=== PATIENT | female | born 1950 | race Caucasian/White ===

== ENCOUNTER 2016-05-21 21:34 | Emergency (ER) | payer MEDICARE ==
[2016-05-21] MEDS ORDERED: Ondansetron INJ* 2 MG/ML VIAL IV ONE (22:12)
[2016-05-21] MEDS ORDERED: Labetalol IV* 5 MG/ML 20 ML VIAL IV PUSH ONE (22:12)
[2016-05-21] MEDS ORDERED: Metoclopramide IV* 5 MG/ML 2 ML VIAL IV SLOW PU ONE (22:15)
[2016-05-21 22:35] LABS: Hematocrit 43 % (35-47); Hemoglobin 14.3 g/dl (12.0-16.0); Mean Corpuscular HGB Conc 33 g/dl (31-36); Mean Corpuscular Hemoglobin 30 pg (27-31); Mean Corpuscular Volume 89 fL (80-97); Mean Platelet Volume 8 um3 (7.4-10.4); Red Blood Count 4.81 10^6/ul (4.0-5.4); Red Cell Distribution Width 13 % (10.5-15); White Blood Count 8.5 10^3/ul (3.5-10.8)
[2016-05-21 22:37] LABS: Add Diff/Slide Review? Slide Review Added; Comments Flag Yes
[2016-05-21 22:44] LABS: Urine Bilirubin Negative (Negative); Urine Glucose Negative (Negative); Urine Nitrite Negative (Negative)
[2016-05-21 22:50] LABS: Albumin 4.3 g/dL (3.2-5.2); BUN/Creatinine Ratio 17.1 (8-20); Calcium 9.7 mg/dL (8.6-10.3); EGFR African American 98.5 (>60); EGFR Non-African American 76.6 (>60); Potassium 3.8 mmol/L (3.5-5.0); Total Bilirubin 0.4 mg/dL (0.2-1.0); Total Protein 7.3 g/dL (6.4-8.9)
[2016-05-21] MEDS ORDERED: Iohexol 350* (CONTRAST) 500 ML MDV IV ONE (23:02)
[2016-05-22 00:01] LABS: Erythrocyte Sed Rate 23 mm/Hr (0-30)
[2016-05-22 02:25] VITALS: BP 113/63
--- NOTE | 2016-05-22 07:42 | RAD ---
HISTORY: Headache COMPARISONS: None TECHNIQUE: Multiple contiguous axial CT scans were obtained of the head without intravenous contrast. FINDINGS: HEMORRHAGE/INFARCT: There is no hemorrhage or acute infarct. MASSES/SHIFT: There is no mass or shift. EXTRA-AXIAL SPACES: There are no extra-axial fluid collections. SULCI AND VENTRICLES: The sulci and ventricles are normal in size and position for the patient's stated age. CEREBRUM: There is mild hypoattenuation of the periventricular and subcortical white matter. BRAINSTEM: There are no focal parenchymal abnormalities. CEREBELLUM: There are no focal parenchymal abnormalities. VESSELS: The vessels are grossly normal. PARANASAL SINUSES: The paranasal sinuses are clear. ORBITS: The orbits are unremarkable. BONES AND SOFT TISSUE: No bone or soft tissue abnormalities are noted. OTHER: None IMPRESSION: NO ACUTE INTRACRANIAL PATHOLOGY.
--- NOTE | 2016-05-22 07:45 | RAD ---
HISTORY: Severe headache, family history of cerebral aneurysm COMPARISONS: Head CT dated May 21, 2016 TECHNIQUE: Multiple contiguous axial CT scans were obtained of the head and neck After the administration of nonionic intravenous contrast timed to the systemic arterial phase of contrast enhancement. Coronal and sagittal multiplanar reformations are submitted for review. Multiple 3-D maximum intensity projection reconstructions are also submitted for review. FINDINGS: CTA NECK: AORTIC ARCH: There is a normal three-vessel branching pattern of the aortic arch. There is no ostial or proximal stenosis of the cephalic great vessels. RIGHT VERTEBRAL ARTERY: The right vertebral artery is patent along its course, without stenosis. LEFT VERTEBRAL ARTERY: The left vertebral artery is patent along its course, without stenosis. DOMINANCE: The left vertebral artery is dominant. RIGHT COMMON CAROTID ARTERY: The right common carotid artery is patent. The right carotid bifurcation occurs at C3-C4 RIGHT INTERNAL CAROTID ARTERY: There is no right internal carotid artery stenosis by NASCET criteria. RIGHT EXTERNAL CAROTID ARTERY: The right external carotid artery is unremarkable. LEFT COMMON CAROTID ARTERY: The left common carotid artery is patent. The left carotid bifurcation occurs at C3-C4 LEFT INTERNAL CAROTID ARTERY: There is atheromatous disease of the left carotid bifurcation, without left internal carotid artery stenosis by NASCET criteria. LEFT EXTERNAL CAROTID ARTERY: The left external carotid artery is unremarkable. VENOUS CIRCULATION: The venous system is unremarkable. SALIVARY GLANDS: The parotid glands, submandibular glands, sublingual glands are normal. NASAL CAVITY/NASOPHARYNX: The nasal cavity and nasopharynx are normal. ORAL CAVITY/OROPHARYNX: The oral cavity and oropharynx are unremarkable. LARYNGEAL APPARATUS/HYPOPHARYNX: The laryngeal apparatus and hypopharynx are normal. UPPER AIRWAY/UPPER ESOPHAGUS: The visualized upper airway and esophagus are normal. LUNG APICES: The lung apices are clear. THYROID GLAND: The thyroid gland is normal. LYMPH NODES: There is no lymphadenopathy by size criteria. BONES AND SOFT TISSUES: No bone or soft tissue abnormalities are noted. CTA HEAD: INTRACRANIAL CIRCULATION: There is no aneurysm, vascular malformation, occlusion, or stenosis of the visualized intracranial circulation. The anterior communicating artery complex is clear. Bilateral posterior communicating arteries are identified. VENOUS CIRCULATION: The venous system is unremarkable. PERFUSION: There is no obvious parenchymal perfusion deficit. HEMORRHAGE/INFARCT: There is no hemorrhage or acute infarct. MASSES/SHIFT: There is no mass or shift. EXTRA-AXIAL SPACES: There are no extra-axial fluid collections. SULCI AND VENTRICLES: The sulci and ventricles are normal in size and position for the patient's stated age. CEREBRUM: There are no focal parenchymal abnormalities. BRAINSTEM: There are no focal parenchymal abnormalities. CEREBELLUM: There are no focal parenchymal abnormalities. PARANASAL SINUSES: The paranasal sinuses are clear. ORBITS: The orbits are unremarkable. BONES AND SOFT TISSUE: Degenerative changes are noted along the spine OTHER: There is no abnormal enhancement. IMPRESSION: 1. NO ANEURYSM, VASCULAR MALFORMATION, OCCLUSION, OR STENOSIS OF THE VISUALIZED INTRACRANIAL CIRCULATION. 2. NO INTERNAL CAROTID ARTERY STENOSIS BY NASCET CRITERIA. CPT II Codes: 3100F
--- NOTE | 2016-05-23 15:13 | ED ---
Kade Galarza Alok, scribed for Juaquin Rehman MD on 05/21/16 at 2248 . Complex/Multi-Sys Presentation - HPI Summary HPI Summary: 65 y/o female presents to the ED with a occipital HUERTAS for last 4 or 5 days. Pt describes her HUERTAS as a throbbing and has steadily been worsening in intensity, at a 8 out of 10 in severity at worst. Pt states that her HUERTAS is aggravated by motion and different than any migraines she has had in the past which are usually frontal HUERTAS. Pt adds photophobia, blurry vision, dizziness, lightheadedness, abd tightness, nausea and nasal congestion. Pt also adds chest tightness on the right side earlier tonight lasting 15-20 minutes and subsided since. Pt denies any SOB, diaphoresis, hematuria, eye pain, dyspnea blood thinner use, or Hx of CAD. Pt last had a UTI 6 months ago with back pain and has had abd surgery in the past for a hernia. - History Of Current Complaint Chief Complaint: EDHeadache Time Seen by Provider: 05/21/16 21:59 Hx Obtained From: Patient Onset/Duration: Gradual Onset, Lasting Days, Still Present Timing: Constant Severity Currently: Moderate Severity Initially: Moderate Location: Pain At: - Head, chest, and abd Character: Throbbing - HUERTAS Associated Signs And Symptoms: Positive: Dizziness, Headache, Chest Pain, Nausea , Abdominal Pain. Negative: SOB, Dysuria, Diaphoresis - Allergies/Home Medications Allergies/Adverse Reactions: Allergies Allergy/AdvReac Type Severity Reaction Status Date / Time Penicillin V Allergy Severe Hives Verified 05/21/16 22:08 [From Penicillin VK Potassium] Meclizine Allergy Hives Verified 05/21/16 22:08 PMH/Surg Hx/FS Hx/Imm Hx Endocrine/Hematology History: Reports: Hx Thyroid Disease - HYPOACTIVE Denies: Hx Diabetes, Hx Systemic Lupus Erythematosus Cardiovascular History: Reports: Hx Angina, Hx Hypertension - ON MEDS Denies: Hx Congestive Heart Failure, Hx Pacemaker/ICD, Other Cardiovascular Problems/Disorders Respiratory History: Reports: Hx Asthma, Hx Sleep Apnea Denies: Hx Chronic Obstructive Pulmonary Disease (COPD), Other Respiratory Problems/Disorders GI History: Reports: Hx Gastroesophageal Reflux Disease - MILD, Hx Hiatal Hernia Denies: Hx Ulcer, Other GI Disorders History: Denies: Hx Dialysis, Hx Renal Disease Musculoskeletal History: Reports: Hx Arthritis - BACK, HANDS Denies: Hx Rheumatoid Arthritis, Other Musculoskeletal History Sensory History: Denies: Hx Contacts or Glasses, Hx Hearing Aid Opthamlomology History: Denies: Hx Contacts or Glasses Neurological History: Reports: Hx Migraine - IN THE PAST Denies: Other Neuro Impairments/Disorders Psychiatric History: Reports: Hx Anxiety - FAMILY ISSUES, Hx Depression - Cancer History Hx Chemotherapy: No Hx Radiation Therapy: No - Surgical History Surgery Procedure, Year, and Place: 2004 & 2009 hernia repair hysterectomy, 1983. UTERUS REMOVED, 1991, [facility] Hx Anesthesia Reactions: No - Immunization History Date of Tetanus Vaccine: unk Date of Influenza Vaccine: unk Infectious Disease History: No Infectious Disease History: Denies: Hx Hepatitis, Hx Human Immunodeficiency Virus (HIV), History Other Infectious Disease, Traveled Outside the [place] in Last 30 Days - Family History Known Family History: Positive: Other - Yes - Breast Cancer (Mother). Yes - Aneurysm (mother's side aunt) - Social History Occupation: Retired Alcohol Use: Rare Substance Use Type: Reports: None Smoking Status (MU): Never Smoked Tobacco Have You Smoked in the Last Year: No Review of Systems Negative: Fever, Chills, Skin Diaphoresis Positive: Photophobia, Blurred Vision. Negative: Erythema ENT: Other - Nasal Congestion Negative: Sore Throat, Nasal Discharge Positive: Chest Pain Negative: Shortness Of Breath, Cough Positive: Abdominal Pain, Nausea. Negative: Vomiting Negative: dysuria, hematuria Negative: Myalgia, Edema Negative: Rash Neurological: Other - Dizziness, Light headedness Positive: Headache All Other Systems Reviewed And Are Negative: Yes Physical Exam - Summary Physical Exam Summary: Constitutional: Well-developed, Well-nourished, Alert. (-) Distressed Skin: Warm, Dry HENT: Eyes: Mild photophobia. Neck: Musculoskeletal ROM normal neck. (-) JVD, (-) Stridor, (-) Tracheal deviation Cardio: Rhythm regular, rate normal, Heart sounds normal; Intact distal pulses ; The pedal pulses are 2+ and symmetric. Radial pulses are 2+ and symmetric. (- ) Murmur Pulmonary/Chest wall: Effort normal. (-) Respiratory distress, (-) Wheezes, (-) Rales Abd: Soft. (-) Tenderness, (-) Distension, (-) Guarding, (-) Rebound Musculoskeletal: (-) Edema Lymph: (-) Cervical adenopathy Neuro: Alert, Oriented x3, Strength normal, Cranial nerves II-XII are grossly intact. (-) Dysmetria, (-) Nystagmus, (-) Ataxia by finger to nose testing, (-) Sensory deficit. No meningismus. Psych: Mood and affect Normal Triage Information Reviewed: Yes Vital Signs On Initial Exam: Initial Vitals Temp Pulse Resp BP Pulse Ox 98.4 F 80 18 168/77 98 05/21/16 21:44 05/21/16 21:44 05/21/16 21:44 05/21/16 21:44 05/21/16 21:44 Vital Signs Reviewed: Yes - [place] Coma Scale Coma Scale Total: 15 Diagnostics - Vital Signs Vital Signs Temp Pulse Resp BP Pulse Ox 05/21/16 21:44 98.4 F 80 18 168/77 98 - Laboratory Result Diagrams: 05/21/16 22:15 05/21/16 22:15 Lab Statement: Any lab studies that have been ordered have been reviewed, and results considered in the medical decision making process. - CT CT angiography Brain CT Interpretation: Positive (See Comments) - IMPRESSION: THE ANTERIOR AND POSTERIOR ARTERIAL CIRCULATIONS ARE NORMAL. NO STENOSIS OCCLUSION DISSECTION OR ANEURYSM. DURAL SINUSES ARE NORMAL WELL. CT Interpretation Completed By: Radiologist CTA NECK CT Interpretation: Positive (See Comments) - IMPRESSION: THE CERVICAL COMMON CAROTID ARTERIES, CAROTID BIFURCATIONS, CERVICAL INTERNAL CAROTID ARTERIES AND THE VILATERAL CERVICAL VERTEBRAL ARTERIES ARE ALL PATENT WITHOUT STENOSIS OR OCCUSION DISSECTION OR ANEURYSM. MILD ATHEROSCLEROTIC PLAQUE LEFT CAROTID BIFURCATION. CT Interpretation Completed By: Radiologist CT NECK CT Interpretation: Positive (See Comments) - IMPRESSION: CT Interpretation Completed By: Radiologist CT BRAIN CT Interpretation: Positive (See Comments) - IMPRESSION: NO ACUTE INTRACRANIAL ABNORMALITY. NO HEMORRAGE. NO VISIBLE ACUTE INFARCT. MINIMAL/EARLY CHRONIC MICROVASCULAR CHANGES IN THE CEREBRAL WHITE MATTER. OSSEOUS STRUCTURES ARE INTACT. CT Interpretation Completed By: Radiologist - EKG 2350 Cardiac Rate: NL EKG Rhythm: Sinus Rhythm - 76 bpm EKG Interpretation: No STEMI Complex Multi-Symp Course/Dx Course Of Treatment: Pt requesting to leave AMA. Could not r/o subarachnoid hemorrhage or meningitis. Discussed 5% miss-rate of CT. Discussed subarachnoid hemorrage risk of fatality, stroke, and disability. She will follow up with her PCP shira. We will encourage her to return to the ED if she changes her mind. - Diagnoses Differential Diagnoses/HQI/PQRI: Other - Subarachnoid Hemorrhage, Meningitis, Cervical HUERTAS, Atypical Migraine Provider Diagnoses: Left AMA, Head ache Discharge - Discharge Plan Condition: Stable Disposition: HOME Referrals: Vinicius Bui MD [Primary Care Provider] - The documentation as recorded by the Kade bowden Alok accurately reflects the service I personally performed and the decisions made by , Juaquin Rehman MD.
== END 2016-05-22 02:24 | disposition home or self-care (01) ==
LOC: ED 21:34
DX: R10.9 Unspecified abdominal pain (principal); R42 Dizziness and giddiness; R51 Headache; R07.9 Chest pain, unspecified; R11.0 Nausea
CPT/HCPCS: 36415; 70450; 70496; 70498; 80053; 81003; 84484; 85025; 85652; 93005; 96374; 96375; 99283; J2405; Q9967

== ENCOUNTER 2016-09-30 14:02 | Emergency (ER) | payer MEDICARE ==
[2016-09-30 15:29] VITALS: BP 149/78
--- NOTE | 2016-09-30 15:55 | RAD ---
INDICATION: Right wrist injury. TECHNIQUE: 3 views of the right wrist were obtained. FINDINGS: There is soft tissue swelling present along the dorsal lateral aspect of the wrist. There is a transverse fracture extending through the radial styloid process to the articular margin. The fracture fragment is slightly distracted. No additional fracture is seen. IMPRESSION: TRANSVERSE, INTRA-ARTICULAR FRACTURE OF THE RADIAL STYLOID PROCESS.
--- NOTE | 2016-10-03 20:33 | UC ---
Upper Extremity HPI - HPI Summary HPI Summary: 66 year old female presents with painful right arm secondary to fall. - History of Current Complaint Chief Complaint: UCUpperExtremity Stated Complaint: FELL ARM/HAND INJURY Time Seen by Provider: 09/30/16 15:24 Pain Intensity: 6 Pain Scale Used: 0-10 Numeric - Allergies/Home Medications Allergies/Adverse Reactions: Allergies Allergy/AdvReac Type Severity Reaction Status Date / Time Penicillin V Allergy Severe Hives Verified 09/30/16 15:29 [From Penicillin VK Potassium] Meclizine Allergy Hives Verified 09/30/16 15:29 PMH/Surg Hx/FS Hx/Imm Hx Previously Healthy: Yes - Surgical History Surgical History: Yes Surgery Procedure, Year, and Place: 2004 & 2009 hernia repair hysterectomy, 1983. UTERUS REMOVED, 1991, - Family History Known Family History: Positive: Other - Yes - Breast Cancer (Mother). Yes - Aneurysm (mother's side aunt) - Social History Alcohol Use: None Substance Use Type: None Smoking Status (MU): Never Smoked Tobacco Have You Smoked in the Last Year: No Household Exposure Type: Cigarettes - Immunization History Most Recent Influenza Vaccination: Fall 2012 Most Recent Tetanus Shot: UNK Most Recent Pneumonia Vaccination: Fall 2012 Review of Systems Constitutional: Negative Skin: Negative Eyes: Negative ENT: Negative Respiratory: Negative Cardiovascular: Negative Gastrointestinal: Negative Genitourinary: Negative Motor: Negative Neurovascular: Negative Musculoskeletal: Other: - right shoulder sprain Neurological: Negative Psychological: Negative All Other Systems Reviewed And Are Negative: Yes Physical Exam Triage Information Reviewed: Yes Vital Signs: Initial Vital Signs Temp 36.5 C 09/30/16 15:23 Pulse 67 09/30/16 15:23 Resp 18 09/30/16 15:23 BP 149/78 09/30/16 15:23 Pulse Ox 100 09/30/16 15:23 Eye Exam: Normal ENT Exam: Normal Dental Exam: Normal Neck exam: Normal Neck: Positive: 1 Respiratory Exam: Normal Cardiovascular Exam: Normal Abdominal Exam: Normal Musculoskeletal: Positive: Other: - right shoulder pain Neurological Exam: Normal Psychological Exam: Normal Skin Exam: Normal Upper Extremity Course/Dx - Differential Dx/Diagnosis Provider Diagnoses: right shoulder pain Discharge - Discharge Plan Condition: Stable Disposition: HOME Patient Education Materials: Wrist Injury (ED), Wrist Fracture in Adults (ED), Hand Sprain (ED), Arm Pain (ED) Referrals: Vinicius Bui MD [Primary Care Provider] - Abdirahman Kumar MD [Medical Doctor] -
== END 2016-09-30 16:18 | disposition home or self-care (01) ==
LOC: UCEAST 14:02
DX: M25.511 Pain in right shoulder (principal); Z88.0 Allergy status to penicillin; Z77.22 Contact with and (suspected) exposure to environmental tobacco smoke (acute) (chronic)
CPT/HCPCS: 99212; G0463

== ENCOUNTER 2017-02-07 17:59 | Emergency (ER) | payer MEDICARE ==
[2017-02-07 18:10] VITALS: BP 155/87
[2017-02-07] MEDS ORDERED: Azithromycin TAB* 250 MG PO ONE (19:19)
--- NOTE | 2017-02-07 19:27 | UC ---
Respiratory Complaint HPI - HPI Summary HPI Summary: 66 yo female with cough and sinus pressure pain x 4 days now has moved into her chest somewhat feverish chills no cp or sob bilateral otalgia and sore throat - History of Current Complaint Chief Complaint: UCGeneralIllness Stated Complaint: SINUS PAIN Time Seen by Provider: 02/07/17 19:12 Hx Obtained From: Patient Onset/Duration: Gradual Onset, Lasting Days Timing: Constant Severity Initially: Mild Severity Currently: Moderate Pain Intensity: 4 Pain Scale Used: 0-10 Numeric Character: Cough: Productive Alleviating Factors: Nothing Associated Signs And Symptoms: Positive: Fever - tracee, Chills, Nasal Congestion, Hoarseness, Sinus Discomfort - Allergies/Home Medications Allergies/Adverse Reactions: Allergies Allergy/AdvReac Type Severity Reaction Status Date / Time Penicillin V Allergy Severe Hives Verified 02/07/17 18:10 [From Penicillin VK Potassium] Meclizine Allergy Hives Verified 02/07/17 18:10 PMH/Surg Hx/FS Hx/Imm Hx Previously Healthy: Yes Cardiovascular History: Hypertension Respiratory History: Asthma, Bronchitis, Pneumonia - Surgical History Surgical History: Yes Surgery Procedure, Year, and Place: 2004 & 2009 hernia repair hysterectomy, 1983. UTERUS REMOVED, 1991, [facility] - Family History Known Family History: Positive: Hypertension, Other - Yes - Breast Cancer ( Mother). Yes - Aneurysm (mother's side aunt) - Social History Alcohol Use: None Substance Use Type: None Smoking Status (MU): Never Smoked Tobacco Have You Smoked in the Last Year: No Household Exposure Type: Cigarettes - Immunization History Most Recent Influenza Vaccination: Fall 2012 Most Recent Tetanus Shot: UNK Most Recent Pneumonia Vaccination: Fall 2012 Review of Systems Constitutional: Negative Skin: Negative Eyes: Negative ENT: Sore Throat, Ear Ache, Nasal Discharge, Sinus Congestion, Sinus Pain/ Tenderness Respiratory: Cough Cardiovascular: Negative Gastrointestinal: Negative Genitourinary: Negative Motor: Negative Neurovascular: Negative Musculoskeletal: Negative Neurological: Negative Psychological: Negative Is Patient Immunocompromised?: No All Other Systems Reviewed And Are Negative: Yes Physical Exam Triage Information Reviewed: Yes Appearance: Well-Appearing, No Pain Distress, Well-Nourished Vital Signs: Initial Vital Signs Temp 97.8 F 02/07/17 18:06 Pulse 81 02/07/17 18:06 Resp 18 02/07/17 18:06 BP 155/87 02/07/17 18:06 Pulse Ox 99 02/07/17 18:06 Vital Signs Reviewed: Yes Eyes: Positive: Conjunctiva Clear ENT: Positive: Hearing grossly normal, Pharyngeal erythema, Nasal congestion, Nasal drainage, TMs normal, Sinus tenderness, Uvula midline. Negative: Hoarse voice, Dental tenderness Dental: Positive: Other: - upper plate Respiratory: Positive: Lungs clear, Normal breath sounds, No respiratory distress, No accessory muscle use, Wheezing - on forced expiration only Cardiovascular: Positive: RRR, No Murmur Musculoskeletal: Positive: ROM Intact, No Edema Neurological: Positive: Alert Psychological Exam: Normal Skin Exam: Normal UC Diagnostic Evaluation - Laboratory O2 Sat by Pulse Oximetry: 99 - normal/not hypoxic Respiratory Course/Dx - Differential Dx/Diagnosis Provider Diagnoses: acute sinusitis. bronchitis Discharge - Discharge Plan Condition: Stable Disposition: HOME Prescriptions: Azithromycin TAB* [Zithromax TAB*] 250 mg PO DAILY #4 tab Patient Education Materials: Sinusitis (ED), Acute Bronchitis (ED) Referrals: Vinicius Bui MD [Primary Care Provider] - 5 Days (if needed)
== END 2017-02-07 19:35 | disposition home or self-care (01) ==
LOC: UCEAST 17:59
DX: J01.90 Acute sinusitis, unspecified (principal); J40 Bronchitis, not specified as acute or chronic; H92.03 Otalgia, bilateral; J02.9 Acute pharyngitis, unspecified; I10 Essential (primary) hypertension; Z88.0 Allergy status to penicillin; Z77.22 Contact with and (suspected) exposure to environmental tobacco smoke (acute) (chronic)
CPT/HCPCS: 99212; A9270-GY; G0463

== ENCOUNTER 2017-02-08 03:40 | Emergency (ER) | payer MEDICARE ==
[2017-02-08] MEDS ORDERED: Ketorolac INJ* 30 MG/ML 1 ML VIAL IV PUSH ONE (03:51)
[2017-02-08] MEDS ORDERED: Metoclopramide IV* 5 MG/ML 2 ML VIAL IV SLOW PU ONE (03:51)
[2017-02-08] MEDS ORDERED: diPHENhydraMINE IV* 50 MG/ML 1 ml VIAL (BENADRYL) IV ONE (03:51)
[2017-02-08] MEDS ORDERED: NS 0.9% 1000 ML* 1,000 ML IV ONE (03:51)
[2017-02-08 04:48] LABS: Hematocrit 43 % (35-47); Hemoglobin 14.5 g/dl (12.0-16.0); Mean Corpuscular HGB Conc 34 g/dl (31-36); Mean Corpuscular Hemoglobin 30 pg (27-31); Mean Corpuscular Volume 88 fL (80-97); Mean Platelet Volume 7 um3 (7.4-10.4); Red Blood Count 4.84 10^6/ul (4.0-5.4); Red Cell Distribution Width 13 % (10.5-15); White Blood Count 9.4 10^3/ul (3.5-10.8)
[2017-02-08 04:58] LABS: Albumin 4.4 g/dL (3.2-5.2); BUN/Creatinine Ratio 17.7 (8-20); Calcium 10.1 mg/dL (8.6-10.3); EGFR African American 93.9 (>60); Globulin 3.2 g/dL (2-4); Potassium 3.8 mmol/L (3.5-5.0); Total Bilirubin 0.7 mg/dL (0.2-1.0); Total Protein 7.6 g/dL (6.4-8.9)
[2017-02-08 06:00] VITALS: BP 145/86
--- NOTE | 2017-02-08 08:21 | RAD ---
Indication: Headache. Comparison: May 21, 2016 Technique: Noncontrast CT vertex of skull through foramen magnum. Report: The sulci, ventricles, and basal cisterns are normal for age. Campbell matter white matter differentiation is preserved without evidence for edema. No intra or extra axial hemorrhage, mass, or fluid collection detected. Unremarkable visualized orbital contents. Indolent thickening of the inner table of the frontal bone. No suspicious calvarial or skull base lesions evident. Unremarkable scalp. The visualized paranasal sinuses and mastoid air spaces are clear. IMPRESSION: Negative unenhanced head CT.
--- NOTE | 2017-02-08 08:27 | RAD ---
Indication: Headache. Congestion. Comparison: May 21, 2016 CT. Technique: Noncontrast CT paranasal sinuses with multiplanar reformation. Report: 5 mm mucous retention cyst or polyp at the floor of the LEFT maxillary sinus. The paranasal sinuses are otherwise clear. Bilateral pneumatized ethmoid cells project along the medial roots of the maxillary sinuses. The infundibula of the anterior ostiomeatal units are narrow. LEFT unilateral mucosal thickening at the nasal cavity which may be transient. No nasal cavity mass evident. Patent choana and unremarkable nasopharyngeal mucosal space contours. Negative for septal deviation. Negative for osseous lesions. IMPRESSION: No evidence for acute sinusitis. Tiny mucous retention cyst or polyp at the floor of the LEFT maxillary sinus
--- NOTE | 2017-02-09 23:33 | ED ---
Renetta Galarza Thomas, scribed for Torres Acosta MD on 02/08/17 at 0354 . Headache - HPI Summary HPI Summary: The patient is a 66 year old female presenting to the ED c/o a headache for the last four days. She has been dealing with a cold and was started on Z-pack yesterday. The pain is rated 9/10. The pain is aggravated by bright lights. It is alleviated by nothing. The patient has treated the pain with nothing prior to arrival. Patient additionally complains of sinus congestion. Patient denies vomiting, fever. - History Of Current Complaint Chief Complaint: EDHeadache Stated Complaint: HEADACHE Time Seen by Provider: 02/08/17 03:41 Hx Obtained From: Patient Onset/Duration: Started days ago - 4, Still Present Currently Pain Is: Current Pain Scale(0-10)= - 9 Timing: Constant Aggravating Factor: Bright Lights Allevating Factors: Nothing Associated Signs And Symptoms: Other (Noted In Comments) - Sinus congestion; NEGATIVE: vomiting, fever - Allergies/Home Medications Allergies/Adverse Reactions: Allergies Allergy/AdvReac Type Severity Reaction Status Date / Time Penicillin V Allergy Severe Hives Verified 02/07/17 18:10 [From Penicillin VK Potassium] Tramadol Allergy Unknown Unknown Verified 02/07/17 19:50 Reaction Details Meclizine Allergy Hives Verified 02/07/17 18:10 PMH/Surg Hx/FS Hx/Imm Hx Previously Healthy: No Endocrine/Hematology History: Reports: Hx Thyroid Disease - HYPOACTIVE Denies: Hx Diabetes, Hx Systemic Lupus Erythematosus Cardiovascular History: Reports: Hx Angina, Hx Hypertension - ON MEDS Denies: Hx Congestive Heart Failure, Hx Pacemaker/ICD, Other Cardiovascular Problems/Disorders Respiratory History: Reports: Hx Asthma, Hx Sleep Apnea Denies: Hx Chronic Obstructive Pulmonary Disease (COPD), Other Respiratory Problems/Disorders GI History: Reports: Hx Gastroesophageal Reflux Disease - MILD, Hx Hiatal Hernia Denies: Hx Ulcer, Other GI Disorders History: Denies: Hx Dialysis, Hx Renal Disease Musculoskeletal History: Reports: Hx Arthritis - BACK, HANDS Denies: Hx Rheumatoid Arthritis, Other Musculoskeletal History Sensory History: Denies: Hx Contacts or Glasses, Hx Hearing Aid Opthamlomology History: Denies: Hx Contacts or Glasses Neurological History: Reports: Hx Migraine - IN THE PAST Denies: Other Neuro Impairments/Disorders Psychiatric History: Reports: Hx Anxiety - FAMILY ISSUES, Hx Depression - Cancer History Hx Chemotherapy: No Hx Radiation Therapy: No - Surgical History Surgery Procedure, Year, and Place: 2004 & 2009 hernia repair hysterectomy, 1983. UTERUS REMOVED, 1991, [facility] Hx Anesthesia Reactions: No - Immunization History Date of Tetanus Vaccine: unk Date of Influenza Vaccine: unk Infectious Disease History: No Infectious Disease History: Denies: Hx Clostridium Difficile, Hx Hepatitis, Hx Human Immunodeficiency Virus (HIV), Hx Shingles, Hx Tuberculosis, Hx Known/Suspected VRE, Hx Known/ Suspected VRSA, History Other Infectious Disease, Traveled Outside the [place] in Last 30 Days - Family History Known Family History: Positive: Hypertension, Other - Yes - Breast Cancer ( Mother). Yes - Aneurysm (mother's side aunt) - Social History Alcohol Use: None Substance Use Type: Reports: None Smoking Status (MU): Never Smoked Tobacco Have You Smoked in the Last Year: No Review of Systems Negative: Fever Positive: Other - Sinus congestion Negative: Vomiting Positive: Headache All Other Systems Reviewed And Are Negative: Yes Physical Exam - Summary Physical Exam Summary: VITAL SIGNS: Reviewed. GENERAL: Patient is a well-developed and nourished female who is lying comfortable in the stretcher. Patient is not in any acute respiratory distress. HEAD AND FACE: No signs of trauma. No ecchymosis, hematomas or skull depressions. No sinus tenderness. EYES: PERRLA, EOMI x 2, No injected conjunctiva, no nystagmus. EARS: Hearing grossly intact. Ear canals and tympanic membranes are within normal limits. MOUTH: Oropharynx within normal limits. NECK: Supple, trachea is midline, no adenopathy, no JVD, no carotid bruit, no c- spine tenderness, neck with full ROM. CHEST: Symmetric, no tenderness at palpation LUNGS: Clear to auscultation bilaterally. No wheezing or crackles. CVS: Regular rate and rhythm, S1 and S2 present, no murmurs or gallops appreciated. ABDOMEN: Soft, non-tender. No signs of distention. No rebound no guarding, and no masses palpated. Bowel sounds are normal. EXTREMITIES: FROM in all major joints, no edema, no cyanosis or clubbing. NEURO: Alert and oriented x 3. No acute neurological deficits. Speech is normal and follows commands. SKIN: Dry and warm Triage Information Reviewed: Yes Vital Signs On Initial Exam: Initial Vitals Temp Pulse Resp BP Pulse Ox 99.4 F 88 20 157/86 97 02/08/17 03:42 02/08/17 03:42 02/08/17 03:42 02/08/17 03:42 02/08/17 03:42 Vital Signs Reviewed: Yes Diagnostics - Vital Signs Vital Signs Temp Pulse Resp BP Pulse Ox 02/08/17 03:42 99.4 F 88 20 157/86 97 - Laboratory Result Diagrams: 02/08/17 04:12 02/08/17 04:12 Lab Statement: Any lab studies that have been ordered have been reviewed, and results considered in the medical decision making process. - CT CT Sinuses CT Interpretation: No Acute Changes - No acute findings. Dr. Acosta has viewed this report. CT Interpretation Completed By: Radiologist CT Head CT Interpretation: No Acute Changes - No acute finding. Dr. Acosta has reviewed this report. CT Interpretation Completed By: Radiologist Re-Evaluation - Re-Evaluation First Eval Re-Evaluation Time: 05:12 Change: Improved Comment: She is feeling better Headache Course/Dx - Course Assessment/Plan: The patient is a 66 year old female presenting to the ED c/o a headache for the last four days. She has been dealing with a cold and was started on Z-pack yesterday. The pain is rated 9/10. The pain is aggravated by bright lights. It is alleviated by nothing. The patient has treated the pain with nothing prior to arrival. Patient additionally complains of sinus congestion. Patient denies vomiting, fever. In the ED course the patient was given Benadryl, Toradol, Reglan, and IV fluids. Bloodwork was obtained. CT Brain shows no acute findings. CT Sinus shows no acute finding. The patient is diagnosed with headache. The patient is instructed to follow up with primary care. The patient is prescribed Motrin. - Diagnoses Provider Diagnoses: Headache Discharge - Discharge Plan Condition: Stable Disposition: HOME Patient Education Materials: General Headache (ED) Referrals: Vinicius Bui MD [Primary Care Provider] - 3 Days Additional Instructions: Follow up with your primary care physician in three days. Return to the emergency department for any new or worsening symptoms. The documentation as recorded by the Renetta bowden Thomas accurately reflects the service I personally performed and the decisions made by Dave dhaliwal Abdul, MD.
== END 2017-02-08 06:00 | disposition home or self-care (01) ==
LOC: ED 03:40
DX: R51 Headache (principal)
CPT/HCPCS: 36415; 70450; 70486; 80053; 85025; 96374; 96375; 99283; J1200; J1885; J2765

== ENCOUNTER 2017-06-11 18:23 | Emergency (ER) | payer MEDICARE ==
[2017-06-11 18:35] VITALS: BP 155/81
--- NOTE | 2017-06-11 18:49 | UC ---
FLU HPI - HPI Summary HPI Summary: Patient to the urgent care tonight with acute shortness of breath that has been waxing and waning over the past 2 weeks. Patient was treated with steroids and antibiotics by her primary care doctor about 10 days ago and got some temporary relief. Patient now has increasing shortness of breath over the past 3 days. Patient has chest tightness difficulty taking a deep breath wheezing getting no relief with her albuterol inhaler has run out of her Symbicort - History of Current Complaint Chief Complaint: UCRespiratory Stated Complaint: FLU-LIKE Time Seen by Provider: 06/11/17 18:48 Hx Obtained From: Patient ?: No Onset/Duration: Gradual Onset, Lasting Weeks - 2, Worse Since - past 3 days Severity Currently: Severe Severity Initially: Severe Pain Intensity: 8 Pain Scale Used: 0-10 Numeric Associated Signs & Symptoms: Positive: Negative, Myalgia, Cough Related Hx: Possible Flu/Infectious Exposure - Allergy/Home Medications Allergies/Adverse Reactions: Allergies Allergy/AdvReac Type Severity Reaction Status Date / Time Penicillins Allergy Severe Hives Verified 06/11/17 19:22 tramadol Allergy Unknown Verified 06/11/17 19:22 Reaction Details meclizine Allergy Hives Uncoded 06/11/17 19:22 Home Medications: Home Medications Albuterol HFA INHALER* [Ventolin HFA Inhaler*] 2 puff INH Q6H PRN 06/11/17 [ History Confirmed 06/11/17] Losartan/Hydrochlorothiazide [Losartan-Hctz 100-25 mg Tab] 1 tab PO QAM [History Confirmed 06/11/17] PMH/Surg Hx/FS Hx/Imm Hx Endocrine History: Hypothyroidism Cardiovascular History: Hypertension Respiratory History: COPD, Asthma - Surgical History Surgical History: Yes Surgery Procedure, Year, and Place: 2004 & 2009 hernia repair hysterectomy, 1983. UTERUS REMOVED, 1991, [facility] - Family History Known Family History: Positive: Hypertension, Other - Yes - Breast Cancer ( Mother). Yes - Aneurysm (mother's side aunt) - Social History Occupation: Disabled Lives: With Family Alcohol Use: None Substance Use Type: None Smoking Status (MU): Never Smoked Tobacco Have You Smoked in the Last Year: No Household Exposure Type: Cigarettes - Immunization History Most Recent Influenza Vaccination: Fall 2012 Most Recent Tetanus Shot: UNK Most Recent Pneumonia Vaccination: Fall 2012 Review of Systems Constitutional: Negative Skin: Negative Eyes: Negative ENT: Negative Respiratory: Shortness Of Breath, Cough Cardiovascular: Negative Gastrointestinal: Negative Genitourinary: Negative Motor: Negative Neurovascular: Negative Musculoskeletal: Negative Neurological: Negative Psychological: Negative Is Patient Immunocompromised?: No All Other Systems Reviewed And Are Negative: Yes Physical Exam Triage Information Reviewed: Yes Appearance: Ill-Appearing, Pain Distress, Obese Vital Signs: Initial Vital Signs Temp 98.6 F 06/11/17 18:30 Pulse 88 06/11/17 18:30 Resp 20 06/11/17 18:30 BP 155/81 06/11/17 18:30 Pulse Ox 98 06/11/17 18:30 Vital Signs Reviewed: Yes Eye Exam: Normal Eyes: Positive: Conjunctiva Clear ENT Exam: Normal ENT: Positive: Normal ENT inspection, Hearing grossly normal, Pharynx normal, TMs normal, Uvula midline. Negative: Nasal congestion, Trismus, Muffled voice, Hoarse voice, Sinus tenderness Dental Exam: Normal Neck exam: Normal Neck: Positive: 1 Respiratory Exam: Other Respiratory: Positive: No accessory muscle use, Respiratory distress, Wheezing Cardiovascular Exam: Normal Cardiovascular: Positive: RRR, No Murmur, Pulses Normal, Brisk Capillary Refill Musculoskeletal Exam: Normal Musculoskeletal: Positive: Strength Intact, ROM Intact, No Edema Neurological Exam: Normal Neurological: Positive: Alert, Muscle Tone Normal Psychological Exam: Normal Skin Exam: Normal Diagnostics - Laboratory Diagnostic Studies Completed/Ordered: Influenza a and influenza B negative - Radiology No standard instances Xray Interpretation: Positive (See Comments) - elevated lung volumes consistant with copd Re-Evaluation - Re-Evaluation Second Eval Change: Improved - After nebulizer treatment patient received significant relief of shortness of breath. Patient was no longer tachypneic patient had increased air movement and essentially wheeze had resolved patient reports that the first time she felt the heaviness of her chest and weeks Flu Course/Dx - Course Course Of Treatment: Will refill patient's Symbicort, will arrange for nebulizer to be delivered to her home, short course of steroids, will treat patient with preventative dose of Tamiflu she's been exposed to her daughter who does have influenza A. Follow with primary care doctor. Symbicort and Pulmicort are not covered by her insurance plan. Flovent will be covered I send a prescription for some Flovent and notified the patient. I spoke with the patient on Wednesday it 1:30 nebulizer had not been delivered at [facility] and they advised she needed some additional information information is provided she reassured me the nebulizer will be delivered and they will get the preauthorization on Wednesday for her. - Differential Dx/Diagnosis Provider Diagnoses: Acute exacerbation of asthma with bronchospasm influenza A exposure Discharge - Sign-Out/Discharge Documenting (check all that apply): Discharge - Discharge Plan Condition: Stable Disposition: HOME Prescriptions: Albuterol 2.5MG/3ML (0.083%)* [Ventolin 2.5 MG/3 ML NEB.BEATRIZ*] 2.5 mg INH Q4H PRN #1 box PRN Reason: wheeze/sob Budesonide Flexhaler 90 (NF) [Pulmicort Flexhaler 90 mcg/act (NF)] 2 puff INH BID #1 mdi Budesonide/Formote 80/4.5(NF) [Symbicort 80/4.5 (NF)] 1 inh INH BID #1 aer Fluticasone HFA 110 mcg(NF) [Flovent HFA 110 mcg(NF)] 1 puff INH BID #1 mdi Oseltamivir CAP* [Tamiflu CAP*] 75 mg PO DAILY #10 cap predniSONE TAB* [Deltasone TAB*] 20 mg PO DAILY #12 tab Patient Education Materials: Asthma (DC), Hypertension (ED), Bronchospasm (ED) , How to Use a Metered-Dose Inhaler and a Spacer (ED) Referrals: Vinicius Bui MD [Primary Care Provider] - 1 Week - Billing Disposition and Condition Condition: STABLE Disposition: HOME
[2017-06-11] MEDS ORDERED: Albuterol/Ipratropium NEB.SOL* Albuterol 2.5 MG/Ipratropium 0.5 MG 3 ML INH ONE (18:59)
--- NOTE | 2017-06-11 19:32 | RAD ---
INDICATION: Cough, fever, chest congestion. Central chest pain. History of asthma. COMPARISON: January 13, 2014 chest radiograph and June 20, [address] TECHNIQUE: Dual energy PA and routine lateral views of the chest were obtained. REPORT: RIGHT and LEFT epicardial fat pads noted based on correlation with prior CT. Elevated lung volumes. No focal pulmonary lesion, compelling alveolar consolidation, pleural effusion, pneumothorax. Negative for cardiomegaly. Unremarkable central pulmonary vasculature and mediastinal contours. IMPRESSION: 1. Elevated lung volumes consistent with history of obstructive lung disease. 2. No acute cardiopulmonary process evident.
== END 2017-06-11 20:05 | disposition home or self-care (01) ==
LOC: UCEAST 18:23
DX: J44.1 Chronic obstructive pulmonary disease with (acute) exacerbation (principal); Z20.828 Contact with and (suspected) exposure to other viral communicable diseases; E03.9 Hypothyroidism, unspecified; I10 Essential (primary) hypertension; Z88.0 Allergy status to penicillin; Z88.5 Allergy status to narcotic agent; Z88.8 Allergy status to other drugs, medicaments and biological substances
CPT/HCPCS: 71046; 87502; 99212; A9270-GY; G0463

== ENCOUNTER 2018-03-19 13:56 | Emergency (ER) | payer BC, MEDICARE ==
[2018-03-19 14:04] VITALS: BP 135/77
--- NOTE | 2018-03-19 14:58 | UC ---
Back Pain HPI - HPI Summary HPI Summary: 67 year old female presents with onset of right lower back pain yesterday which radiates down her right leg. States back pain has subsided but continues to have "intense" pain in the right buttocks and right upper leg to the level of the knee. Pain worsens with ambulation. Took ibuprofen x 1 dose with improvement in the pain. Denies injury, fever, chills, abdominal pain, nausea, vomiting, dysuria, frequency, urgency, hematuria, vaginal discharge, or abnormal bleeding. - History of Current Complaint Chief Complaint: UCGeneralIllness Stated Complaint: LEG PAIN Time Seen by Provider: 03/19/18 14:34 Hx Obtained From: Patient Pain Intensity: 7 - Allergies/Home Medications Allergies/Adverse Reactions: Allergies Allergy/AdvReac Type Severity Reaction Status Date / Time Penicillins Allergy Severe Hives Verified 03/19/18 14:04 hydrocodone Allergy Rash Verified 03/19/18 14:07 tramadol Allergy Unknown Verified 03/19/18 14:04 Reaction Details meclizine Allergy Hives Uncoded 03/19/18 14:04 Home Medications: Home Medications Ibuprofen 800 mg PO ONCE PRN 03/19/18 [History Confirmed 03/19/18] PMH/Surg Hx/FS Hx/Imm Hx Endocrine History: Hypothyroidism Cardiovascular History: Hypertension - Surgical History Surgical History: Yes Surgery Procedure, Year, and Place: 2004 & 2009 hernia repair hysterectomy, 1983. UTERUS REMOVED, 1991, [facility] - Family History Known Family History: Positive: Hypertension, Other - Yes - Breast Cancer ( Mother). Yes - Aneurysm (mother's side aunt) - Social History Occupation: Disabled Lives: With Family Alcohol Use: None Substance Use Type: None Smoking Status (MU): Never Smoked Tobacco Have You Smoked in the Last Year: No Household Exposure Type: Cigarettes - Immunization History Most Recent Influenza Vaccination: Fall 2012 Most Recent Tetanus Shot: UNK Most Recent Pneumonia Vaccination: Fall 2012 Review of Systems All Other Systems Reviewed And Are Negative: Yes Constitutional: Negative: Fever, Chills Skin: Negative: Rash Respiratory: Negative: Shortness Of Breath Cardiovascular: Negative: Palpitations, Chest Pain Gastrointestinal: Negative: Abdominal Pain, Vomiting, Diarrhea, Nausea Genitourinary: Negative: Dysuria, Hematuria, Frequency, Urgency, Vaginal/Penile Discharge, Abnormal Bleeding Motor: Negative: Weakness Neurovascular: Negative: Decreased Sensation Musculoskeletal: Positive: Other: - See HPI Neurological: Positive: Negative Is Patient Immunocompromised?: No Physical Exam - Summary Physical Exam Summary: GENERAL APPEARANCE: Alert and cooperative, and appears to be in no acute distress. EARS: External auditory canals and tympanic membranes clear, hearing grossly intact. NOSE: No nasal discharge. THROAT: Oral cavity and pharynx normal. No inflammation, swelling, exudate, or lesions. Teeth and gingiva in good general condition. NECK: Neck supple, non-tender without lymphadenopathy. CARDIAC: Normal S1 and S2. No S3, S4 or murmurs. Rhythm is regular. There is no peripheral edema, cyanosis or pallor. Extremities are warm and well perfused. Capillary refill is less than 2 seconds. LUNGS: Clear to auscultation without rales, rhonchi, wheezing or diminished breath sounds. ABDOMEN: Positive bowel sounds. Soft, nondistended, nontender. No guarding or rebound. No masses or hepatosplenomegally. No CVA tenderness. MUSKULOSKELETAL: ROM intact to all extremities. No joint erythema or tenderness. Normal muscular development. Normal gait. BACK: Examination of the spine reveals normal gait and posture, no spinal deformity or tenderness, decreased range of motion or muscular spasm. NEUROLOGICAL: Strength and sensation symmetric and intact throughout. Reflexes 2 + throughout. SKIN: Skin normal color, texture and turgor with no lesions or eruptions. Triage Information Reviewed: Yes Vital Signs: Initial Vital Signs Temp 98 F 03/19/18 14:01 Pulse 93 03/19/18 14:01 Resp 17 03/19/18 14:01 BP 135/77 03/19/18 14:01 Pulse Ox 99 03/19/18 14:01 Vital Signs Reviewed: Yes Diagnostics - Laboratory Diagnostic Studies Completed/Ordered: POC UA 1+ leukocyte esterase. Urine culture pending. Back Pain Course/Dx - Course Course Of Treatment: 67 year old female presents with onset of right lower back pain yesterday which radiates down her right leg. States back pain has subsided but continues to have "intense" pain in the right buttocks and right upper leg to the level of the knee. Pain worsens with ambulation. Took ibuprofen x 1 dose with improvement in the pain. Denies injury, fever, chills, abdominal pain, nausea, vomiting, dysuria, frequency, urgency, hematuria, vaginal discharge, or abnormal bleeding. Afebrile. VSS. Exam reveals adult female in no acute distress. Exam was unremarkable. A POC urinalysis was performed as patient states she had a UTI in past with similar symptoms. 1+ leukocyte esterase othewise normal. I do not think that her pain is related to a UTI and is more likely sciatica based on her symptoms. Will send the urine for culture and treat as appropriate. Recommending conservative treatment with NSAIDs and heat. She is to follow up with her PCP in 7 days if no improvement in symptoms. Warning symptoms reviewed with patient. Verbalizes understanding and agrees with POC. - Differential Dx/Diagnosis Differential Diagnosis/HQI/PQRI: Arthritis, Herniated Disc, Renal Colic, Strain , Other - UTI Provider Diagnosis: Sciatica, right side Discharge - Sign-Out/Discharge Documenting (check all that apply): Patient Departure All imaging exams completed and their final reports reviewed: No Studies - Discharge Plan Condition: Stable Disposition: HOME Patient Education Materials: Sciatica (ED) Referrals: Vinicius Bui MD [Primary Care Provider] - 7 Days (If no improvement in your symptoms.) Additional Instructions: The urine test performed in the clinic today showed a few white blood cells but was otherwise normal. Based on your symptoms, I do not suspect that your pain is related to a urinary tract infection but we will send the urine for culture to see if any bacteria grow out. It will take 48-72 hours before we get these results. We will contact you if there is any need to treat for an infection. I suspect that your pain is from some sciatica. Take ibuprofen 600 mg every 8 hours for next few days then you may take as needed. Use warm moist heat to the affected area for 15-20 minutes 3-4 times a day. Follow up with your primary care provider in 7 days if symptoms persist. Seek immediate medical attention in the emergency room if you develop fever greater than 100.5 F, have severe abdominal pain, persistent vomiting, lose control of your bowel or bladder, you develop weakness, numbness, or tingling of the lower extremities, or have any worsening of symptoms. - Billing Disposition and Condition Condition: STABLE Disposition: Home
== END 2018-03-19 15:25 | disposition home or self-care (01) ==
LOC: UCEAST 13:56
DX: M54.41 Lumbago with sciatica, right side (principal); Z88.5 Allergy status to narcotic agent; Z88.0 Allergy status to penicillin; Z88.8 Allergy status to other drugs, medicaments and biological substances
CPT/HCPCS: 81003; 87086; 99211; G0463